=== PATIENT | male | born 2000 | race Hispanic/Latino ===

== ENCOUNTER 2022-07-31 03:20 | Inpatient (IN) | payer OTHER, SELFPAY ==
--- OUTSIDE RECORDS SUMMARY | 2022-07-31 03:22 | XMS REPORT | Continuity of Care Document ---
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 731-0) MONO x10^3 (test 0.62 10*3/uL 0.36-1.02 code = 742-7) EOS x10^3 (test 0.16 10*3/uL 0.06-0.53 code = 711-2) BASO x10^3 (test 0.06 10*3/uL 0.01-0.09 code = 704-7) [facility]"
[2022-07-31] MEDS ORDERED: NA CHLORIDE 0.9% 1,000 ML ONE ×3 (04:18→09:51)
[2022-07-31 04:41] LABS: Absolute Lymphocytes (CBC) 1.5 K/uL (0.7-4.9); Hematocrit 39.2 % (39.6-49.0); Lymphocytes % 20.2 % (15.3-44.8); MCV 88.8 fL (80-100); MPV 8.2 fL (7.6-11.3); RBC Red Blood Cell Count 4.41 M/uL (4.33-5.43)
[2022-07-31 04:44] LABS: Protime INR 1.24
--- NOTE | 2022-07-31 04:53 | EDPHYS ---
[facility] Name: Jesse Gutierrez Age: 21 yrs Sex: Male : 2000 Arrival Date: 07/31/2022 Time: 03:21 Bed 13 Private MD: ED Physician Cristian Goodman HPI: 07/31 03:59 This 21 yrs old Male presents to ER via Unassigned with complaints of Fall cheyenne Injury, Head Injury-Adult, Seizure. 03:59 Details of fall: The patient fell from an upright position, while walking. Onset: The cheyenne symptoms/episode began/occurred just prior to arrival. Associated injuries: The patient sustained injury to the head. Severity of symptoms: At their worst the symptoms were mild, in the emergency department the symptoms are unchanged. The patient has not experienced similar symptoms in the past. Historical: - Allergies: 04:00 No Known Allergies; aa9 04:00 No Known Allergies; as6 - Home Meds: 04:00 None [Active]; aa9 04:00 None [Active]; as6 - PMHx: 04:00 None; aa9 04:00 None; as6 - PSHx: 04:00 None; aa9 04:00 None; as6 - Immunization history:: Client reports having NOT received the Covid vaccine. Adult Immunizations up to date, Client reports having NOT received the Covid vaccine. - Social history:: Smoking status: Patient reports the use of cigarette tobacco products, smokes one-half pack cigarettes per day, Smoking status: Patient reports the use of cigarette tobacco products, 1-2/day, Patient uses street drugs, cocaine, Xanax. - Immunization history: Last tetanus immunization: unknown. - Family history:: not pertinent. ROS: 03:59 Constitutional: Negative for fever, chills, and weight loss, Eyes: Negative for injury, cheyenne pain, redness, and discharge, ENT: Negative for injury, pain, and discharge, Neck: Negative for injury, pain, and swelling, Cardiovascular: Negative for chest pain, palpitations, and edema, Respiratory: Negative for shortness of breath, cough, wheezing, and pleuritic chest pain, Abdomen/GI: Negative for abdominal pain, nausea, vomiting, diarrhea, and constipation, Back: Negative for injury and pain, : Negative for injury, bleeding, discharge, and swelling, MS/Extremity: Negative for injury and deformity, Skin: Negative for injury, rash, and discoloration, Psych: Negative for depression, anxiety, suicide ideation, homicidal ideation, and hallucinations, Allergy/Immunology: Negative for hives, rash, and allergies, Endocrine: Negative for neck swelling, polydipsia, polyuria, polyphagia, and marked weight changes, Hematologic/Lymphatic: Negative for swollen nodes, abnormal bleeding, and unusual bruising. 03:59 Neuro: Positive for seizure activity. Exam: 03:59 Constitutional: This is a well developed, well nourished patient who is awake, alert, cheyenne and in no acute distress. Head/Face: Normocephalic, atraumatic. Eyes: Pupils equal round and reactive to light, extra-ocular motions intact. Lids and lashes normal. Conjunctiva and sclera are non-icteric and not injected. Cornea within normal limits. Periorbital areas with no swelling, redness, or edema. ENT: Nares patent. No nasal discharge, no septal abnormalities noted. Tympanic membranes are normal and external auditory canals are clear. Oropharynx with no redness, swelling, or masses, exudates, or evidence of obstruction, uvula midline. Mucous membranes moist. Neck: Trachea midline, no thyromegaly or masses palpated, and no cervical lymphadenopathy. Supple, full range of motion without nuchal rigidity, or vertebral point tenderness. No Meningismus. Chest/axilla: Normal chest wall appearance and motion. Nontender with no deformity. No lesions are appreciated. Cardiovascular: Regular rate and rhythm with a normal S1 and S2. No gallops, murmurs, or rubs. Normal PMI, no JVD. No pulse deficits. Respiratory: Lungs have equal breath sounds bilaterally, clear to auscultation and percussion. No rales, rhonchi or wheezes noted. No increased work of breathing, no retractions or nasal flaring. Abdomen/GI: Soft, non-tender, with normal bowel sounds. No distension or tympany. No guarding or rebound. No evidence of tenderness throughout. Back: No spinal tenderness. No costovertebral tenderness. Full range of motion. Male : Normal genitalia with no discharge or lesions. Skin: Warm, dry with normal turgor. Normal color with no rashes, no lesions, and no evidence of cellulitis. MS/ Extremity: Pulses equal, no cyanosis. Neurovascular intact. Full, normal range of motion. Psych: Awake, alert, with orientation to person, place and time. Behavior, mood, and affect are within normal limits. 03:59 Neuro: Orientation: is normal, appropriate for stated age, no acute changes, Mentation: is normal, appropriate for stated age, no acute changes, Memory: is normal, appropriate for stated age, no acute changes, Cranial nerves: grossly normal, is grossly normal based on the patient's age, no acute changes, Cerebellar function: is grossly normal, is grossly normal based on the patient's age, no acute changes, Motor: is normal, is grossly normal based on the patient's age, no acute changes, moves all fours, strength is normal, Sensation: no obvious gross deficits, appropriate no acute changes, Gait: not tested. Deep tendon reflexes are 2+ (normal) in the bilateral brachioradialis, bicep, tricep and patellar and Achilles tendons, seizure activity, is not displayed by the patient. 04:27 ECG was reviewed by the Attending Physician. cheyenne Vital Signs: 03:56 Weight 81.65 kg; Height 5 ft. 8 in. (172.72 cm); as6 04:01 BP 130 / 70; Pulse 102; Resp 16 S; Temp 98.2(O); Pulse Ox 100% on R/A; Weight 81.65 kg aa9 (R); Height 5 ft. 8 in. (172.72 cm) (R); Pain 0/10; 04:24 BP 117 / 69; Pulse 85; Resp 16 S; Pulse Ox 100% on R/A; Pain 0/10; aa9 05:11 BP 122 / 76; Pulse 75; Pulse Ox 100% on R/A; aa9 05:46 BP 114 / 71; Pulse 75; Resp 23; Pulse Ox 97% on R/A; kd3 06:29 BP 110 / 55; Pulse 85; Resp 19; Pulse Ox 96% on R/A; kd3 04:01 Body Mass Index 27.37 (81.65 kg, 172.72 cm) aa9 Sean Coma Score: 04:25 Eye Response: spontaneous(4). Verbal Response: oriented(5). Motor Response: obeys aa9 commands(6). Total: 15. Trauma Score (Adult): 04:25 Eye Response: spontaneous(1); Verbal Response: oriented(1); Motor Response: obeys aa9 commands(2); Systolic BP: > 89 mm Hg(4); Respiratory Rate: 10 to 29 per min(4); Sean Score: 15; Trauma Score: 12 MDM: 03:49 Patient medically screened. [facility] 04:03 Data reviewed: vital signs, nurses notes, lab test result(s), EKG, radiologic studies, [place] CT scan. Data interpreted: phototypesetting equipment monitor: rate is 80 beats/min, rhythm is regular, Pulse oximetry: on room air. Test interpretation: by ED physician or midlevel provider: ECG, plain radiologic studies. Counseling: I had a detailed discussion with the patient and/or guardian regarding: the historical points, exam findings, and any diagnostic results supporting the discharge/admit diagnosis, lab results, radiology results, the need for outpatient follow up, for definitive care, a family practitioner, a neurologist. 07/31 03:59 Order name: Acetaminophen; Complete Time: 05:24 [facility] 07/31 03:59 Order name: Basic Metabolic Panel; Complete Time: 05:24 [facility] 07/31 03:59 Order name: CBC with Diff; Complete Time: 04:51 [facility] 07/31 03:59 Order name: ETOH Level; Complete Time: 05:24 [facility] 07/31 03:59 Order name: Hepatic Function; Complete Time: 05:24 [facility] 07/31 03:59 Order name: PT-INR; Complete Time: 04:51 [facility] 07/31 03:59 Order name: Ptt, Activated; Complete Time: 04:51 [facility] 07/31 03:59 Order name: Salicylate [facility] 07/31 03:59 Order name: Urine Drug Screen; Complete Time: 05:56 [facility] 07/31 05:23 Order name: Urine Dipstick-Ancillary; Complete Time: 05:24 EDMS 07/31 06:52 Order name: SARS RAPID as6 07/31 07:18 Order name: CBC with Automated Diff EDMS 07/31 07:18 Order name: CBC with Automated Diff EDMS 07/31 07:18 Order name: Comprehensive Metabolic Panel EDOR 07/31 03:59 Order name: EKG; Complete Time: 04:00 [facility] 07/31 03:59 Order name: EKG - Nurse/Tech; Complete Time: 04:27 [facility] 07/31 03:59 Order name: IV Saline Lock; Complete Time: 04:19 [facility] 07/31 04:07 Order name: CT Head C Spine [facility] 07/31 07:18 Order name: CONS Physician Consult EDOR 07/31 07:18 Order name: Regular EDOR 07/31 07:18 Order name: EEG Request EDOR 07/31 07:18 Order name: EEG Request EDOR 07/31 07:18 Order name: Comprehensive Metabolic Panel EDOR 07/31 07:18 Order name: Brain Wo Cont EDOR 07/31 13:24 Order name: MRI EDOR 07/31 03:59 Order name: Labs collected and sent; Complete Time: 04:19 [facility] 07/31 03:59 Order name: Suicide Screening ([place]); Complete Time: 04:17 [facility] 07/31 03:59 Order name: Urine Dipstick-Ancillary (obtain specimen); Complete Time: 05:44 [facility] 07/31 03:59 Order name: Seizure Precautions; Complete Time: 04:16 [facility] EC:27 Rate is 87 beats/min. Rhythm is regular. QRS [place] is Normal. ME interval is normal. QRS [place] interval is normal. QT interval is normal. No Q waves. T waves are Normal. No ST changes noted. Clinical impression: Normal ECG and No evidence of ischemia. Interpreted by me. Reviewed by me. Administered Medications: 04:23 Drug: NS 0.9% 1000 ml Route: IV; Rate: 1 bolus; Site: left antecubital; aa9 05:12 Follow up: IV Status: Completed infusion; IV Intake: 975ml aa9 05:12 Follow up: Response: No adverse reaction aa9 05:44 Drug: Keppra (levETIRAcetam) 1000 mg Route: IV; Rate: per protocol; Site: left kd3 antecubital; 05:49 Follow up: IV Status: Completed infusion; IV Intake: 100ml kd3 06:38 Drug: NS 0.9% 1000 ml Route: IV; Rate: 125 ml/hr; Site: left antecubital; kd3 Disposition Summary: 07/31/22 05:34 Hospitalization Ordered Hospitalization Status: Observation cheyenne Provider: Jan Colon cheyenne Condition: Stable(07/31/22 05:34) cheyenne Problem: new(07/31/22 05:34) cheyenne Symptoms: have improved(07/31/22 05:34) cheyenne Bed/Room Type: Standard cheyenne Location: [facility] ER HOLD(07/31/22 21:32) cg Room Assignment: ERHOLD-(07/31/22 21:32) cg Diagnosis - Epileptic seizures related to external causes(07/31/22 05:34) cheyenne - Cocaine abuse(07/31/22 05:34) cheyenne Forms: - Medication Reconciliation Form cheyenne - SBAR form cheyenne Signatures: Dispatcher [employer] EDMS Arti Quinones RN RN kl Woody, Diana RN Cristian Phillips MD MD cha Williams, Irene, RN RN iw Garcia, Cindy RN Sinan Greer RN RN as6 Rupali Paul RN NINFA kd3 Yumiko Lemus RN RN aa9 Corrections: (The following items were deleted from the chart) 04:21 04:14 Head Brain Wo Cont ordered. EDMS EDMS 04:32 04:00 Head Brain Wo Cont+CT.RAD.BRZ ordered. EDMS EDMS 05:29 04:51 Home cheyenne cheyenne 05:29 04:51 new cheyenne cheyenne 05:29 04:51 have improved cheyenne cheyenne 05:29 04:51 Fair cheyenne cheyenne 05:29 04:51 Epileptic seizures related to external causes cheyenne cheyenne 05:29 04:51 Cocaine abuse cheyenne cheyenne 05:29 04:51 Tobacco abuse counseling cheyenne cheyenne 05:29 04:51 Tobacco use cheyenne cheyenne 05:29 04:51 Abuse of other non-psychoactive substances cheyenne cheyenne 09:57 05:34 Telemetry/MedSurg (observation) cheyenne iw 09:57 05:34 cheyenne iw 19:18 09:57 [facility] ER HOLD iw dw 19:18 09:57 ERHOLD- iw dw 20:04 19:18 430 kl 21:32 19:18 Telemetry/MedSurg (observation) dw 21:32 20:04 [facility]
--- NOTE | 2022-07-31 04:53 | ER ---
Nurse's Notes [facility] Name: Jesse Gutierrez Age: 21 yrs Sex: Male : 2000 Arrival Date: 07/31/2022 Time: 03:21 Bed 13 Private MD: Diagnosis: Epileptic seizures related to external causes;Cocaine abuse Presentation: 07/31 03:56 Chief complaint: Patient states: "I took some cocaine and Xanax tonight." Aunt states as6 she was in another room and heard a thud and went into the room and found him having a seizure. Coronavirus screen: Vaccine status: Patient reports being unvaccinated. At this time, the client does not indicate any symptoms associated with coronavirus-19. Ebola Screen: No symptoms or risks identified at this time. Risk Assessment: Do you want to hurt yourself or someone else? Patient reports no desire to harm self or others. Onset of symptoms was July 31, 2022 at 03:10. 03:56 Method Of Arrival: Wheelchair as6 03:56 Acuity: PETTY 3 as6 04:25 Initial Sepsis Screen: Does the patient meet any 2 criteria? HR > 90 bpm. No. Patient's aa9 initial sepsis screen is negative. Does the patient have a suspected source of infection? No. Patient's initial sepsis screen is negative. 04:26 Care prior to arrival: None. Mechanism of Injury: Fall from standing position. Trauma aa9 event details: Injury occurred in the [facility], Injury occurred: at home. Injury occurred: July 31, 2022 Injury occurred at: 03:00. Triage Assessment: 04:00 General: Appears uncomfortable, Behavior is cooperative, flat. General:. Pain: Denies as6 pain. 04:01 General: Appears unkempt, Behavior is cooperative, listless. Pain: Denies pain. aa9 Respiratory: Airway is patent Trachea midline Respiratory effort is even, unlabored, Respiratory pattern is regular, symmetrical. 04:03 Neuro: Level of Consciousness is awake, obeys commands, Oriented to person, place, as6 time, situation, Appropriate for age. Cardiovascular:. GI: No deficits noted. : No deficits noted. Derm: No deficits noted. Trauma Activation: Physician: ED Physician; Name: Rex; Notified At: 04:17; Arrived At: 04:07 Physician: General Surgeon; Name: ; Notified At: 04:17; Arrived At: Physician: Radiology; Name: ; Notified At: 04:17; Arrived At: Physician: Respiratory; Name: ; Notified At: 04:17; Arrived At: Physician: Lab; Name: ; Notified At: 04:17; Arrived At: Historical: - Allergies: 04:00 No Known Allergies; aa9 04:00 No Known Allergies; as6 - Home Meds: 04:00 None [Active]; aa9 04:00 None [Active]; as6 - PMHx: 04:00 None; aa9 04:00 None; as6 - PSHx: 04:00 None; aa9 04:00 None; as6 - Immunization history:: Client reports having NOT received the Covid vaccine. Adult Immunizations up to date, Client reports having NOT received the Covid vaccine. - Social history:: Smoking status: Patient reports the use of cigarette tobacco products, smokes one-half pack cigarettes per day, Smoking status: Patient reports the use of cigarette tobacco products, 1-2/day, Patient uses street drugs, cocaine, Xanax. - Immunization history: Last tetanus immunization: unknown. - Family history:: not pertinent. Screenin:17 Abuse screen: Denies threats or abuse. Denies injuries from another. Nutritional ha1 screening: No deficits noted. Tuberculosis screening: No symptoms or risk factors identified. Fall Risk IV access (20 points). Primary Survey: 04:06 NO uncontrolled hemorrhage observed. Breathing/Chest: Spontaneous respiratory effort, aa9 equal unlabored respirations, breath sounds clear bilaterally, regular pattern, symmetrical chest rise and fall. Respiratory effort: spontaneous, unlabored. Circulation: No external hemorrhage present. Regular and strong central pulse, skin warm/dry/normal color. Disability Pupils are equal, round, reactive to light and accommodation. Client is alert. Client responds to verbal stimuli. Exposure/Environment: There is no evidence of uncontrolled external bleeding. No obvious injuries are noted at this time. A warming method has been applied: A warm blanket has been provided to the patient. Reassessment Breathing: Spontaneous respiratory effort, equal unlabored respirations, breath sounds clear bilaterally, regular pattern with symmetrical chest rise and fall. Respiratory effort Spontaneous Unlabored Breath sounds Clear Respiratory pattern Regular Circulation: No external hemorrhage noted. Regular and strong central pulse, skin warm/dry/normal color. Heart rhythm Sinus tach Disability: Pupils Pupils are equal, round, reactive to light and accomodation. Alert Verbal stimuli. Secondary Survey: 04:24 HEENT: No deficits noted. Gastrointestinal: No deficits noted. : No deficits noted. aa9 Musculoskeletal: No deficits noted. Assessment: 04:17 General: Appears in no apparent distress. Behavior is calm, cooperative. Neuro: Level ha1 of Consciousness is awake, alert, obeys commands, Oriented to person, place, time, situation. Respiratory: Airway is patent Trachea midline Respiratory effort is even, unlabored, Respiratory pattern is regular, symmetrical. 05:11 Reassessment: Patient and/or family updated on plan of care and expected duration. Pain aa9 level reassessed. Patient is alert, oriented x 3, equal unlabored respirations, skin warm/dry/pink. 05:44 General: witnessed seizure approximately 15 minutes ago. pt now post ictal. . Neuro: kd3 Level of Consciousness is post ictal. Respiratory: Airway is patent Trachea midline Respiratory effort is unlabored, Respiratory pattern is regular. 06:30 Reassessment: Patient and/or family updated on plan of care and expected duration. Pain kd3 level reassessed. Patient is alert, oriented x 3, equal unlabored respirations, skin warm/dry/pink. Patient states symptoms have improved. General: Appears in no apparent distress. Behavior is cooperative. Vital Signs: 03:56 Weight 81.65 kg; Height 5 ft. 8 in. (172.72 cm); as6 04:01 BP 130 / 70; Pulse 102; Resp 16 S; Temp 98.2(O); Pulse Ox 100% on R/A; Weight 81.65 kg aa9 (R); Height 5 ft. 8 in. (172.72 cm) (R); Pain 0/10; 04:24 BP 117 / 69; Pulse 85; Resp 16 S; Pulse Ox 100% on R/A; Pain 0/10; aa9 05:11 BP 122 / 76; Pulse 75; Pulse Ox 100% on R/A; aa9 05:46 BP 114 / 71; Pulse 75; Resp 23; Pulse Ox 97% on R/A; kd3 06:29 BP 110 / 55; Pulse 85; Resp 19; Pulse Ox 96% on R/A; kd3 04:01 Body Mass Index 27.37 (81.65 kg, 172.72 cm) aa9 Sean Coma Score: 04:25 Eye Response: spontaneous(4). Verbal Response: oriented(5). Motor Response: obeys aa9 commands(6). Total: 15. Trauma Score (Adult): 04:25 Eye Response: spontaneous(1); Verbal Response: oriented(1); Motor Response: obeys aa9 commands(2); Systolic BP: > 89 mm Hg(4); Respiratory Rate: 10 to 29 per min(4); Sean Score: 15; Trauma Score: 12 ED Course: 03:21 Patient arrived in ED. bp1 03:49 Cristian Goodman MD is Attending Physician. [place] 04:00 Triage completed. as6 04:05 Arm band placed on. aa9 04:09 Yumiko Lemus, RN is Primary Nurse. aa9 04:16 Inserted saline lock: 20 gauge in left antecubital area, using aseptic technique. Blood aa9 collected. 04:26 Patient has correct armband on for positive identification. Side rails up X2. Adult w/ aa9 patient. 04:26 Patient maintains SpO2 saturation greater than 95% on room air. aa9 04:49 CT Head C Spine In Process Unspecified. EDMS 04:51 Jose Borrego MD is Referral Physician. [place] 04:51 Thermoregulation: warm blanket given to patient. aa9 05:33 Rizwan Garcia MD is Hospitalizing Provider. chey[place] 05:33 Jan Colon MD is Hospitalizing Provider. cheyenne 05:47 No provider procedures requiring assistance completed. kd3 Administered Medications: 04:23 Drug: NS 0.9% 1000 ml Route: IV; Rate: 1 bolus; Site: left antecubital; aa9 05:12 Follow up: IV Status: Completed infusion; IV Intake: 975ml aa9 05:12 Follow up: Response: No adverse reaction aa9 05:44 Drug: Keppra (levETIRAcetam) 1000 mg Route: IV; Rate: per protocol; Site: left kd3 antecubital; 05:49 Follow up: IV Status: Completed infusion; IV Intake: 100ml kd3 06:38 Drug: NS 0.9% 1000 ml Route: IV; Rate: 125 ml/hr; Site: left antecubital; kd3 Medication: 05:44 VIS not applicable for this client. kd3 Intake: 05:12 IV: 975ml; Total: 975ml. aa9 05:47 PO: 0ml; Total: 975ml. kd3 05:49 IV: 100ml; Total: 1075ml. kd3 Output: 05:47 Urine: 450ml (Voided); Total: 450ml. kd3 Outcome: 04:51 Discharge ordered by . cheyenne 05:34 Decision to Hospitalize by Provider. [place] 05:47 Patient's length of stay in the Emergency Department was greater than 2 hours. Pt kd3 admitted for observations related to seizure activities. Patient's length of stay extended due to 08/01 12:09 Patient left the ED. ms3 Signatures: Dispatcher [employer] EDMS Cristian Goodman MD MD cha Sims, Marcus, DO DO ms3 Keke Sosa Ashby, RN RN as6 Rupali Paul RN RN kd3 Yumiko Lemus, RN RN aa9 Leny Maciel, RN RN ha1
[2022-07-31 05:04] LABS: ALT/SGPT 25 U/L (12-78); AST/SGOT 13 U/L (15-37); Alkaline Phosphatase 107 U/L (45-117); BUN Blood Urea Nitrogen 8 mg/dL (7-18); Bicarbonate 27 mmol/L (21-32); Bilirubin Direct 0.1 mg/dL (0-0.2); Bilirubin Total 0.3 mg/dL (0.2-1.0); Glomerular Filtration Rate 107 ml/min (=/>90); Glucose Level 113 mg/dL (74-106); Potassium 3.5 mmol/L (3.5-5.1); Protein, Total 8.3 g/dL (6.4-8.2); Sodium Level 138 mmol/L (136-145)
[2022-07-31 05:22] LABS: Urine Blood Negative (Negative); Urine Glucose Negative (Negative); Urine Protein Negative (Negative); Urine pH 6.5 (5.0-7.0)
[2022-07-31] MEDS ORDERED: DIAZEPAM 10 MG/2 ML INJ SYRINGE ONE (05:35)
[2022-07-31] MEDS ORDERED: LEVETIRACETAM 500 MG/5 ML VIAL IV ONE ×2 (05:41→09:51)
[2022-07-31] MEDS ORDERED: NA CHLORIDE 0.9% 100 ML ONE ×2 (05:41→09:57)
[2022-07-31 05:44] LABS: Barbiturates NEGATIVE (NEGATIVE); Benzodiazepines POSITIVE (NEGATIVE); Cocaine POSITIVE (NEGATIVE); METHAMPHETAM NEGATIVE (NEGATIVE); Methadone NEGATIVE (NEGATIVE); Opiates NEGATIVE (NEGATIVE); Phencyclidine NEGATIVE (NEGATIVE); THC Cannibis NEGATIVE (NEGATIVE)
[2022-07-31] MEDS ORDERED: ONDANSETRON 4 MG/2 ML VIAL IV PRN (07:13)
[2022-07-31] MEDS ORDERED: MORPHINE 2 MG/ML SYR IV PRN (07:13)
[2022-07-31] MEDS ORDERED: ACETAMINOPHEN 500 MG TAB PO PRN (07:13)
[2022-07-31] MEDS: levETIRAcetam 500 MG in NA CHLORIDE 0.9% 100 ML IV SCH ×2 (08:00→20:00)
[2022-07-31] MEDS: NA CHLORIDE 0.9% 1,000 ML IV SCH ×2 (08:00→18:00)
[2022-07-31] MEDS ORDERED: AZITHROMYCIN 500 MG INJ IVPB ONE (08:04)
[2022-07-31] MEDS ORDERED: CEFTRIAXONE 1000 MG/VIAL ONE (08:04)
[2022-07-31] MEDS ORDERED: NA CHLORIDE 0.9% 250 ML ONE (08:04)
[2022-07-31] MEDS ORDERED: D5 0.45 NS 1,000 ML IV ONE (08:05)
[2022-07-31] MEDS ORDERED: ENOXAPARIN 40 MG/0.4 ML SQ ONE (08:05)
[2022-07-31] MEDS ORDERED: NA CHLORIDE 0.9% 50 ML ONE (08:05)
[2022-07-31 08:11] LABS: SARS-CoV-2 Antigen Rapid Res Negative (Negative)
[2022-07-31] MEDS ORDERED: MORPHINE 2 MG/ML SYR ONE (10:25)
[2022-07-31 11:08] VITALS: BMI 27.3
--- NOTE | 2022-07-31 11:39 | RAD REPORT ---
EXAM DESCRIPTION: CT - Head C Spine Mpr Wo Con - 07/31/2022 6:55 am CLINICAL HISTORY: 21 years Male seizure TECHNIQUE: Noncontrast CT head and cervical spine with coronal and sagittal reformats. All CT scans at this facility use dose modulation, iterative reconstruction, and/or weight based dosing when appro priate to reduce radiation dose to as low as reasonably achievable. COMPARISON: None. FINDINGS: HEAD: Brain: No intracranial hemorrhage, midline shift, mass or mass effect. No obvious large acute territo rial infarction. Ventricles: No hydrocephalus. Orbits: Unremarkable. Sinus: Mild right maxillary sinus mucosal thickening. Mastoid: clear Osseous: Unremarkable. Soft tissues: Unremarkable. CERVICAL SPINE: Vertebra: No acute fracture. Canal: No high grade spinal canal stenosis. Alignment: No spondylolisthesis. Soft tissues: Unremarkable. Lungs: Visualized lung apices are clear. IMPRESSION: Head: 1. No acute intracranial findings. Cervical spine: 1. No acute cervical spine pathology. Electronically signed by: Wili Aguayo MD 07/31/2022 6:09 AM CDT Due to temporary technical issues with the PACS/Fluency reporting system, reports are being signed by the in house radiologists without review as a courtesy to insure prompt reporting. The interpreting radiologist is fully responsible for the content of the report.
--- NOTE | 2022-07-31 13:23 | RAD REPORT ---
EXAM DESCRIPTION: MRI - Brain W/Wo Cont - 07/31/2022 12:27 pm CLINICAL HISTORY: new onset seizures Headache, drowsiness, seizure COMPARISON: Head C Spine Mpr Wo Con dated 07/31/2022 TECHNIQUE: Multi-sequence, multiplanar MR imaging of the brain was performed with contrast. FINDINGS: No intracranial hemorrhage, hydrocephalus, or extra-axial fluid collection. No edema or sh ift of midline structures. No intracranial mass. DWI is negative for acute CVA. The midline structures are normally formed. Mastoid air cells and paranasal sinuses are clear. Post-contrast images show no abnormal enhancement to suggest tumor or infection. IMPRESSION: No acute or concerning intracranial abnormalities. No pathologic post-contrast enhancement suspected.
[2022-08-01 02:24] LABS: Absolute Lymphocytes (CBC) 1.7 K/uL (0.7-4.9); Hematocrit 40.4 % (39.6-49.0); Lymphocytes % 24.9 % (15.3-44.8); MCV 89.9 fL (80-100); MPV 8.4 fL (7.6-11.3); RBC Red Blood Cell Count 4.49 M/uL (4.33-5.43)
[2022-08-01 02:34] LABS: Albumin 3.2 g/dL (3.4-5.0); Bilirubin Total 0.2 mg/dL (0.2-1.0); Potassium 3.8 mmol/L (3.5-5.1)
--- NOTE | 2022-08-01 08:31 | P.HP ---
Certification for Inpatient Patient admitted to: Inpatient With expected LOS: >2 Midnights Patient will require the following post-hospital care: None Practitioner: I am a practitioner with admitting privileges, knowledge of patient current condition, hospital course, and medical plan of care. Services: Services provided to patient in accordance with Admission requirements found in Title 42 Section 412.3 of the Code of Federal Regulations Patient History Date of Service: 07/31/22 Reason for admission: Seizure disorder History of Present Illness: Patient is a 21-year-old gentleman who was at home yesterday. He was using drugs recreationally. He apparently fell and hit the back of his head and started having seizures. His family brought him into the emergency room. In the ER he was given Keppra. He was doing better and was possibly can go home but had another seizure so he was given additional medication for seizures. He currently is doing well. He is awake and alert and interacting. His aunt is at bedside. He will be given Keppra every 12. MRI and EEG pending. Neurology consultation pending. Allergies No Known Allergies Allergy (Unverified 07/31/22 07:40) Home Medications: NK [No Home Meds] 07/31/22 - Past Medical/Surgical History -: None Past Surgical History: Patient denies surgical history - Family History Father Family History: Reviewed- Non-Contributory - Social History Smoking Status: Unknown if ever smoked CD- Drugs: Yes Place of Residence: Home Review of Systems 10-point ROS is otherwise unremarkable Physical Examination - Vital Signs Temperature: 98 F Blood Pressure: 131/79 Pulse: 58 Respirations: 14 Pulse Ox (%): 99 - Physical Exam General: Alert, In no apparent distress, Oriented x3 HEENT: Atraumatic, PERRLA, Mucous membr. moist/pink, EOMI, Sclerae nonicteric Neck: Supple, 2+ carotid pulse no bruit, No LAD, Without JVD or thyroid abnormality Respiratory: Clear to auscultation bilaterally, Normal air movement Cardiovascular: Regular rate/rhythm, Normal S1 S2 Gastrointestinal: Normal bowel sounds, No tenderness Musculoskeletal: No tenderness Integumentary: No rashes Neurological: Normal gait, Normal speech, Normal strength at 5/5 x4 extr, Normal tone, Normal affect Lymphatics: No axilla or inguinal lymphadenopathy Assessment & Plan - Problems (Diagnosis) (1) New onset seizure Current Visit: Yes Status: Acute (2) Concussion Current Visit: Yes Status: Acute (3) Polysubstance abuse Current Visit: Yes Status: Acute - Plan Plan: 1. Continue with antiepileptics 2. EEG 3. MRI of the brain 4. Neurology consultation 5. Counseling regarding polysubstance abuse 6. GI DVT prophylaxis Discharge Plan: Home Plan to discharge in: 24 Hours - Advance Directives Does patient have a Living Will: No Does patient have a Durable POA for Healthcare: No - Code Status/Comfort Care Code Status Assessed: Yes Code Status: Full Code Critical Care: No Time Spent Managing PTS Care (In Minutes): 50
--- NOTE | 2022-08-01 08:34 | P.DS ---
Discharge Date: 08/01/22 Disposition: ROUTINE DISCHARGE Discharge Condition: GOOD Reason for Admission: Seizure disorder - Problems (1) New onset seizure Current Visit: Yes Status: Acute (2) Concussion Current Visit: Yes Status: Acute (3) Polysubstance abuse Current Visit: Yes Status: Acute Brief History of Present Illness: Patient is a 21-year-old gentleman who was at home yesterday. He was using drugs recreationally. He apparently fell and hit the back of his head and started having seizures. His family brought him into the emergency room. In the ER he was given Keppra. He was doing better and was possibly can go home but had another seizure so he was given additional medication for seizures. He currently is doing well. He is awake and alert and interacting. His aunt is at bedside. He will be given Keppra every 12. MRI and EEG pending. Neurology consultation pending. Hospital Course: Patient is clinically doing well. Patient with no new complaints. Plan at this time is to discharge patient home. MRI was negative. EEG reviewed by neurology. Patient okay to discharge if okay with neurology. Vital Signs/Physical Exam: Temp Pulse Resp BP Pulse Ox 98 F 58 14 131/79 99 08/01/22 08:31 08/01/22 08:31 08/01/22 08:31 08/01/22 08:31 08/01/22 08:31 General: Alert, In no apparent distress, Oriented x3 Laboratory Data at Discharge: WBC 6.70 K/uL (4.3-10.9) 08/01/22 02:05 Hgb 14.1 g/dL (13.6-17.9) 08/01/22 02:05 Hct 40.4 % (39.6-49.0) 08/01/22 02:05 Plt Count 264 K/uL (152-406) 08/01/22 02:05 PT 13.7 SECONDS (9.5-12.5) H 07/31/22 04:20 INR 1.24 07/31/22 04:20 APTT 32.3 SECONDS (24.3-36.9) 07/31/22 04:20 Sodium 139 mmol/L (136-145) 08/01/22 02:05 Potassium 3.8 mmol/L (3.5-5.1) 08/01/22 02:05 BUN 11 mg/dL (7-18) 08/01/22 02:05 Creatinine 0.82 mg/dL (0.55-1.3) 08/01/22 02:05 Glucose 113 mg/dL (74-106) H 08/01/22 02:05 Total Bilirubin 0.2 mg/dL (0.2-1.0) 08/01/22 02:05 AST 12 U/L (15-37) L 08/01/22 02:05 ALT 18 U/L (12-78) 08/01/22 02:05 Alkaline Phosphatase 115 U/L (45-117) 08/01/22 02:05 Home Medications: NK [No Home Meds] 07/31/22 Physician Discharge Instructions: OK TO DC IV AND DC HOME FOLLOW-UP WITH PRIMARY CARE PROVIDER IN 1-2 WEEKS FOLLOW-UP WITH NEUROLOGY IN 1-2 WEEKS RETURN TO THE ER IF symptoms worsens CALL DR. KRAUSE AT [phone] IF ANY QUESTIONS REGARDING HOSPITAL STAY. PLEASE CALL THE FLOOR AT [phone] IF ANY MEDICATION OR NURSING QUESTIONS. Diet: Regular Activity: Fall precautions Followup: NONE,NONE [Primary Care Provider] - Time spent managing pt's care (in minutes): 35
[2022-08-01] MEDS ORDERED: NA CHLORIDE 0.9% 100 ML ONE (08:52)
[2022-08-01] MEDS ORDERED: LEVETIRACETAM 500 MG/5 ML VIAL IV ONE (08:52)
[2022-08-01] MEDS: levETIRAcetam 500 MG in NA CHLORIDE 0.9% 100 ML IV SCH (08:52)
--- NOTE | 2022-08-01 10:55 | EKG ---
Test Date: 2022-07-31 Test Time: 04:28:32 Hide Dyer: RODRICK MEASUREMENT RESULTS: Intervals: Rate: 87 NE: 140 QRSD: 90 QT: 390 QTc: 469 [place]: P: 76 NE: 140 QRS: 83 T: 62 INTERPRETIVE STATEMENTS: Normal sinus rhythm Normal ECG No previous ECG available for comparison Electronically Signed On 08-01-22 10:50:36 CDT by Waqas Hudson
[2022-08-01 12:24] VITALS: TEMP 98.2
[2022-08-01 12:33] VITALS: BP 110/55; O2SAT 96
--- NOTE | 2022-08-05 08:57 | EEG ---
CHART: [id number] TEST ID#: [id number] DATE OF STUDY: 07-30-2022 THE EEG WAS RECORDED PORTABLE IN THE EMERGENCY ROOM ON A 17 CHANNEL MACHINE. ELECTRODES WERE APPLIED IN THE USUAL MANNER USING THE INTERNATIONAL 10-20 SYSTEM. THE [place]AK[place] BACKGROUND RHYTHM IN THIS RECORD CONSISTS OF VERY WELL DEVELOPED AND WELL ORGANIZED WAVES OF 11 HZ., MAXIMAL IN THE POSTERIOR HEAD REGIONS WHICH ATTENUATE NORMALLY WITH EYE OPENING. LOW-VOLTAGE 18-22 HZ ACTIVITY IS EXPRESSED IN THE FRONTAL REGIONS. THERE ARE NO FOCAL OR LATERALIZING FEATURES. NO EPILEPTIFORM ACTIVITY APPEARS. SLEEP OCCURRED NATURALLY. IN ADDITION NORMAL SLEEP PATTERNS ARE PRESENT. HYPERVENTILATION WAS NOT PERFORMED. PHOTIC STIMULATION PRODUCED FAIR DRIVING BILATERALLY. IMPRESSION: NORMAL EEG FOR THE AGE OF THE PATIENT IN [place], DROWSIENSS AND SLEEP.
== END 2022-08-01 11:00 | disposition home or self-care (01) | DRG 101 ==
LOC: ER 03:20 → ERHOLD 07:13 → OBSVTOIN 21:20
PROVIDERS: ADMIT Hospitalist; ATTEND Hospitalist
DX: G40.909 Epilepsy, unspecified, not intractable, without status epilepticus (principal); S06.0X9A Concussion with loss of consciousness of unspecified duration, initial encounter; F14.10 Cocaine abuse, uncomplicated; F17.210 Nicotine dependence, cigarettes, uncomplicated; Z28.310 Unvaccinated for COVID-19; Z20.822 Contact with and (suspected) exposure to COVID-19; W18.30XA Fall on same level, unspecified, initial encounter
CPT/HCPCS: 36415; 70450; 70553; 72125; 80048; 80053; 80076; 80307; 80320; 80329; 81003; 85025; 85610; 85730; 87811; 93005; 95819; 96361; 96374; 99284; A9577; G0378; J0456; J1650; J1953; J2270; J3360; J7030; J7050; J7799